=== PATIENT | male | born 1980 | race African-American/Black ===

== ENCOUNTER 2017-02-04 17:14 | Emergency (ER) | payer MEDICAID ==
[~2017-02-04] VITALS: Ht 180.3 cm; Wt 79.0 kg
[2017-02-04] MEDS ORDERED: KETOROLAC 30MG/ML VIAL IM ONE (17:30)
[2017-02-04 17:46] VITALS: BP 138/98
== END 2017-02-04 17:49 | disposition home or self-care (01) ==
LOC: ER 17:14
DX: K08.89 Other specified disorders of teeth and supporting structures (principal); F12.10 Cannabis abuse, uncomplicated
CPT/HCPCS: 96372; 99283; J1885